=== PATIENT | female | born 1945 | race Caucasian/White ===

== ENCOUNTER 2017-03-03 06:44 | Day surgery (SDC) | payer MEDICARE, OTHER ==
[~2017-03-03] VITALS: Ht 162.6 cm; Wt 84.2 kg
[~2017-03-03 06:44] MED LIST: 1-ME1LIQ PO; ALPR.25 PO; AMIT8CAP6 PO; ASPI81TA82 PO; ATEN-100 PO; B-CO1TAB5 PO; BENA25TA8 PO; CENTCHW3; CITA20TA4 PO; FLUT50I EACH NARE; FOSI40TA PO; FURO20TA PO; GABA300C3 PO; HYDR10SO PO; KCL10C PO; MILN50 PO; OMEG12002; OMEP20TA39 PO; PRAV20 PO; RANI150T PO; ROPI1TAB72 PO; STOO100T PO; VESI10TA4 PO; VITA-13 PO; [UNRECOGNIZED DRUG - CODE]
[2017-03-03] MEDS ORDERED: IOHEXOL 350 MG/ML 100 ML BTL (for Cath Lab) OTHER ONE (06:45)
[2017-03-03] MEDS ORDERED: diphenhydrAMINE HCL 50 MG CAP PO SCH (07:30)
[2017-03-03] MEDS ORDERED: MIDAZOLAM HCL 2 MG/2 ML VIAL IV SCH (07:30)
[2017-03-03] MEDS ORDERED: ASPIRIN 325 MG TAB PO SCH (07:30)
[2017-03-03] MEDS ORDERED: DIAZEPAM 5 MG TAB PO SCH (07:30)
[2017-03-03 07:45] VITALS: BP 125/63; PULSE 72; RESP 17; TEMP 98.4; O2SAT 97
[2017-03-03] MEDS ORDERED: SODIUM CHLOR 0.9% 1000 ML INJ 1,000 ML IV SCH ×2 (08:00→09:08)
[2017-03-03] MEDS ORDERED: VERAPAMIL HCL 5 MG/2 ML VIAL ONE (08:19)
[2017-03-03] MEDS ORDERED: MIDAZOLAM HCL 2 MG/2 ML VIAL ONE (08:19)
[2017-03-03] MEDS ORDERED: NITROGLYCERIN INJ 5 ML ONE ×2 (08:19→08:20)
[2017-03-03] MEDS ORDERED: HEPARIN SODIUM - IV 10,000 UNITS/10 ML VIAL ONE (08:19)
[2017-03-03] MEDS ORDERED: HEPARIN-NS/PF INJ 1,000 ML ONE (08:19)
[2017-03-03 08:22] LABS: HEMATOCRIT 38.5 % (35.0-46.0); MEAN CELL VOLUME 85.5 FL (80.0-100.0); MEAN CORPUSCULAR HEMOGLOBIN 27.7 PG (27.0-34.0); MEAN CORPUSCULAR HGB CONC 32.4 % (32.0-36.0); PLATELET COUNT 219 TH/MM3 (150-450); REVIEW FLAG FINAL
[2017-03-03] MEDS ORDERED: VITA100064 PO (08:30)
[2017-03-03] MEDS ORDERED: ATEN25TA PO (08:30)
[2017-03-03] MEDS ORDERED: [UNRECOGNIZED DRUG - CODE] (08:30)
[2017-03-03] MEDS ORDERED: GABA400C5 PO (08:30)
[2017-03-03] MEDS ORDERED: AMIT8CAP6 PO (08:30)
[2017-03-03] MEDS ORDERED: FISHCAP4 PO (08:30)
[2017-03-03] MEDS ORDERED: VESI10TA PO (08:30)
[2017-03-03] MEDS ORDERED: [UNRECOGNIZED DRUG - CODE] TOPICAL (08:30)
[2017-03-03] MEDS ORDERED: ASPI81CH CHEW (08:30)
[2017-03-03] MEDS ORDERED: OMEP40CA2 PO (08:30)
[2017-03-03] MEDS ORDERED: FURO1TAB62 PO (08:30)
[2017-03-03] MEDS ORDERED: PRAV40TA PO (08:30)
[2017-03-03] MEDS ORDERED: VITA150T (08:30)
[2017-03-03] MEDS ORDERED: ROPI1TAB PO (08:30)
[2017-03-03] MEDS ORDERED: DOCU50CA5 (08:30)
[2017-03-03] MEDS ORDERED: CITA20TA4 PO (08:30)
[2017-03-03] MEDS ORDERED: MILN25 PO (08:30)
[2017-03-03] MEDS ORDERED: FLUT50SP EACH NARE (08:30)
[2017-03-03] MEDS ORDERED: AMLO10TA2 PO (08:30)
[2017-03-03] MEDS ORDERED: ALPR.25 PO (08:30)
[2017-03-03] MEDS ORDERED: POTA10CA PO (08:30)
[2017-03-03] MEDS ORDERED: DIPH25CA PO (08:30)
[2017-03-03] MEDS ORDERED: FOSI40TA PO (08:30)
[2017-03-03] MEDS ORDERED: RANI150T PO (08:30)
[2017-03-03] MEDS ORDERED: HYDR-3366 PO (08:30)
[2017-03-03 08:38] LABS: BICARBONATE 30.8 MEQ/L (21.0-32.0)
[2017-03-03 08:42] LABS: PROTHROMBIN TIME - PATIENT 11.2 SEC (9.8-11.6)
--- NOTE | 2017-03-03 09:10 | CATHPROC ---
[employer] HIS Report Study Information Study Number Admission Scheduled Start Study Start [id number] Mar 03 2017 6:44AM 03/03/2017 Mar 03 2017 8:23AM Harold Service Cardiac Catheterization Admit Source Facility Department Other [facility] Physician and Clinical Staff Initial Ulises Olmedo [facility] Counselor Parker Ramires,SUSANNA [facility] Counselor Lovely Tejeda RN Recorder Emma Sharp,RT(R) Scrub Dallas Snyder RCIS(BS) Scrub Luly Blackwell,RT(R) Procedures Performed Procedure Location (Site) Vessel Name Coronary Angiograms LCA Left Coronary Coronary Angiograms RCA Right Coronary L Heart Cath Wire insertion Radial (right) Radial Art. Equipment Time Secondary Connector Armature Description Size Mfg Part Number Used/Scraped TRANSDUCER, TRUWAVE [id number] 08:32 [employer] * Used W/STOCKCOCK *[id number] *[id number] *[id number] 08:32 MALLINCKRODT SYRINGE, ANGIOMAT 150ML 150ML *[id number] Used 2SUB [id number] 08:32 Tred PACK, CCL CUSTOM * Used *[id number] 08:32 Tred SUPPORT, ARTERIAL ADULT 41205 *[id number] Used [id number] 08:32 [employer] PACER PEN, SKIN DUAL W/ RULER * Used *[id number] BAND, RADIAL COMPRESSION TR [id number] 09:02 I-DISPO MEDICAL 24CM Used SHORT 24 *[id number] 08:32 I[employer] MEDICAL WIRE, EXCHANGE 260CM 3MMJ 260CM Used *[id number] 08:32 NAMIC MANIFOLD, 4 PORT * Used *[id number] 08:42 NAMIC TUBING, HIGH PRESSURE 20" 20" Used *[id number] 09:08 [employer] OMNIPAQUE, 350 MG, 150ML 150ML [id number] Used 08:32 [employer] OMNIPAQUE, 350 MG, 150ML 150ML [id number] Used [id number] 08:32 RUIZ MED[employer] BLANKET,WARM AIR CCL * Used *[id number] CATHETER, FR5 OPTITORQUE [id number] 08:38 TER[employer] FR 5 Used RADIAL TIG 4.0 *[id number] SHEATH, FR6 TRANSRADIAL RM*[id number] 08:32 [employer] FR 6 Used SLENDER 10CM *[id number] History: Current Medications Medication Dosage/Unit Route Frequency Last Date/Time Taken ASA Beta Cass NORVASC History: Risk Factors Family History of Hypertension Dyslipidemia Previous NH Previous Heart Failure Premature CAD Yes Yes Yes No No Prior Valve Prior PCI Prior CABG Surgery No No No Cerebrovascular Peripheral Artery Chronic Lung On Dialysis Diabetes Disease Disease Disease No No Yes No No History: Stress Tests Stress or Imaging Studies Performed Yes Standard Exercise Stress Test No Stress Echo No Stress Test SPECT Stress Test SPECT Result Stress Test SPECT Ischemia Risk/Extent Yes Positive High Stress Test CMR No Cardiac CTA Coronary Calcium Score No No History: Other Current Smoker Method Quit Packs a Day No Cigarettes 60 Years Ago 1 Labs Hct (%) WBC (l/cumm) Platelets (thousands) 35.00-51.00 4.00-11.00 150.00-450.00 42.2 4.9 229 Glucose (mg/dl) BUN (mg/dl) Creatinine (mg/dl) BUN:Creatinine (1:x) 74.00-106.00 7.00-18.00 0.50-1.30 10.00-20.00 109 18 0.6 30 Na (meq/l) K (meq/l) 136.00-145.00 3.50-5.10 136 4.2 CPK-MB (ng/ML) 0.50-3.60 Not Drawn Medication Medication Total Dose (Bolus/Oral) Medication Total Dosage/Unit 1% XYLOCAINE 20 mL FENTANYL 50 mcg OXYGEN 2 l/min RADIAL COCKTAIL 5 mL (Bolus) VERSED 2 mg Medications (Bolus/Oral) Medication Time Given Dosage/Unit Administered By Reason FENTANYL 03/03/2017 8:23:00 AM 50 mcg Lovely Tejeda 50 mcg FENTANYL given in lab by oLvely Tejeda, RN in Left Antecubital via Peripheral IV. VERSED 03/03/2017 8:24:39 AM 2 mg Lovely Tejeda 2 mg VERSED given in lab by Lovely Tejeda, SUSANNA in Left Antecubital via Peripheral IV. Ordered by Ulises Rod. OXYGEN 03/03/2017 8:26:00 AM 2 l/min Lovely Tejeda 2 l/min OXYGEN given in lab by Lovely Tejeda, RN via Nasal. 1% XYLOCAINE 03/03/2017 8:37:19 AM 20 mL Ulises Reddy 20 mL 1% XYLOCAINE given in lab by Ulises Reddy in Right Wrist via Subcutaneous. Ntg 200mcg Verapamil 2.5mg Heparin RADIAL COCKTAIL 03/03/2017 8:39:10 AM 5 mL (Bolus) Ulises Reddy 3000U 5 mL (Bolus) RADIAL COCKTAIL given in lab by Ulises Reddy in Right Radial via Radial. Using [Solu tion Name]. Reason: Ntg 200mcg Verapamil 2.5mg Heparin 3000U. Medication (Drip) Medication Time Given Dosage/Unit Concentration/Unit Diluent (ml) Solution IV Solutions 03/03/2017 8:31:01 AM 0 mL (IV) 500 NaCl .9 Patient arrived on IV Solutions in Left Antecubital via Peripheral IV. Pump/Drip Flow = 20 ml/hr usin g NaCl .9. Ordered by Ulises Reddy. Initial Case Assessment Cardiovascular HR Rhythm NIBP 70 paced 95/52 Edema Present Skin color Skin None Normal Warm Circulatory - Right Pulses Dorsalis Pedis Femoral Radial 2 2 2 Scale (0,1,2,3,4,d) Circulatory - Left Pulses Dorsalis Pedis Femoral Radial 2 2 Scale (0,1,2,3,4,d) Circulatory - Lower Extremities Color Lower Right Color Lower Left Normal Normal Neurological State Oriented to time-place- Alert Moves all extremities person Respiration - General Respiration Rate SpO2 (%) (B/min) 26 95 Final Case Assessment Cardiovascular HR Rhythm NIBP Chest Pain 69 reg 86/53 0 Edema Present Skin color Skin None Normal Warm Circulatory - Right Pulses Dorsalis Pedis Femoral Radial 2 2 2 Scale (0,1,2,3,4,d) Circulatory - Left Pulses Dorsalis Pedis Femoral Radial 2 2 Scale (0,1,2,3,4,d) Neurological State Oriented to time-place- Alert Moves all extremities person Respiration - General Respiration Rate SpO2 (%) (B/min) 13 99 Chronological Log Time Study Chronological Log 8:22:46 Patient arrived via Bed. 8:22:47 Patient Name, D.O.B, / Armband Verified By R.N. 8:22:48 Consent signed by the physician and the patient and verified by the [facility] staff. 8:22:48 Pre-op and post- op instructions given; patient acknowledges understanding of instructions. 8:22:49 Verbal Stimulation=2 Physical Stimulation=2 Airway=2 Respiration=2 TOTAL=8. (0=absent, 1=li mited, 2=present) 8:22:50 MD arrived. 8:22:54 Allens test performed on the right radial and ulnar artery. 8:23:00 50 mcg FENTANYL given in lab by Lovely Tejeda, SUSANNA in Left Antecubital via Peripheral IV. Vitals capture started with the following parameters, Patient=Adult, Interval=5 min, Initial Pr bncpbo=694 mmHg, 8:23:38 Deflation Rate=5 mmHg, Cuff placed on Right Arm 8:24:19 HR=74 bpm, NIBP=90/47 mmhg, SpO2=95.0 %, Resp=10 B/min, Pain=0, Ricco=10, Mckeon=2 8:24:39 2 mg VERSED given in lab by Lovely Tejeda, SUSANNA in Left Antecubital via Peripheral IV. Orde red by Ulises Reddy. 8:24:55 Reference ECG taken 8:26:00 2 l/min OXYGEN given in lab by Lovely Tejeda, SUSANNA via Nasal. 8:29:10 HR=71 bpm, NIBP=95/52 mmhg, SpO2=95 %, Resp=8 B/min, Pain=0, Ricco=10, Mckeon=2 8:30:45 Patient has been NPO for More than 6Hrs. 8:30:47 Skin Breakdown-none 8:30:56 A # 20 IV was noted in the Antecubital (left). Grade = 0 Patient arrived on IV Solutions in Left Antecubital via Peripheral IV. Pump/Drip Flow = 20 ml/hr using NaCl .9. Ordered 8:31:01 by Ulises Reddy. 8:31:19 History and physical on the chart or being dictated. Assessment: Initial Case, HR=70 BPM, Rhythm=paced, NIBP=95/52 mmhg, Edema=None, Color=Normal, Sk in = Warm Right Pulses: Quang Ped=2, Femoral=2, Radial=2 Left Pulses: Quang Ped=2, Femoral=2 8:31:22 Lower Right Extremities: Color=Normal Lower Left Extremities: Color=Normal Neurological: State=Alert, Ox3, RODRIGUEZ Respiration: Resp=26 B/min, SpO2=95 % 8:34:11 HR=76 bpm, NIBP=88/53 mmhg, SpO2=95.0 %, Resp=20 B/min, Pain=0, Ricco=10, Mckeon=2 Time Out. Correct patient, correct procedure,correct physician, ,power injector loaded or not katlyn aded with contrast with 8:34:30 surgical team present. Time Out Concurred by MD, individual staff and ROTARY DRIER OPERATOR in procedure 8:34:40 Case Start 8:36:50 Pressure channel 1 zeroed. 8:37:19 20 mL 1% XYLOCAINE given in lab by Ulises Reddy in Right Wrist via Subcutaneous. 8:37:32 Access site was Radial Artery.rt 8:37:42 A wire was inserted via Radial (right). A SHEATH, FR6 TRANSRADIAL SLENDER 10CM FR 6 was advanced into the Radial (right) using the Dori peterson 8:37:53 technique. 8:38:02 power injector loaded by ramin tejeda and verified by michelle snyder 5 mL (Bolus) RADIAL COCKTAIL given in lab by Ulises Reddy in Right Radial via Radial. Using [Solution Name]. 8:39:10 Reason: Ntg 200mcg Verapamil 2.5mg Heparin 3000U. 8:40:40 HR=70 bpm, NIBP=74/35 mmhg, SpO2=92.0 %, Resp=12 B/min, Pain=0, Ricco=10, Mckeon=2 A CATHETER, FR5 OPTITORQUE RADIAL TIG 4.0 FR 5 was advanced over a wire. OMNIPAQUE, 350 MG, 150M L 150ML 8:40:47 was used for injections. Recorded Pressure: Ao, HR=70, Condition=Condition 1 8:41:18 (Aorta) Ao 100/49/69 8:42:10 The LCA was injected and visualized at various angles. OMNIPAQUE, 350 MG, 150ML 150ML used. 8:44:09 HR=69 bpm, NIBP=81/46 mmhg, SpO2=96.0 %, Resp=12 B/min, Pain=0, Ricco=10, Mckeon=2 8:46:13 Catheter was removed A JR 5.0 INFINITI CATHETER FR 6 was advanced over a wire. OMNIPAQUE, 350 MG, 150ML 150ML was use d for 8:47:16 injections. 8:48:37 The RCA was injected and visualized at various angles. OMNIPAQUE, 350 MG, 150ML 150ML used. 8:49:12 HR=71 bpm, NIBP=83/37 mmhg, SpO2=97.0 %, Resp=12 B/min, Pain=0, Ricco=10, Mckeon=2 After removing the current catheter a PIGTAIL STR INFINITI CATHETER FR 6 was advanced over a WIR E, EXCHANGE 8:49:43 260CM 3MMJ 260CM. Recorded Pressure: LV, HR=70, Condition=Condition 1 8:53:06 (Left Ventricle) LV 119/9/16 8:54:09 HR=94 bpm, NIBP=86/53 mmhg, SpO2=98.0 %, Resp=18 B/min, Pain=0, Ricco=10, Mckeon=2 Recorded Pressure: LV, Ao, HR=71, Condition=Condition 1 8:54:47 (Left Ventricle) LV 109/-8/17, (Aorta) Ao 107/51/72 8:55:41 Catheter was removed 8:56:51 Case End Assessment: Final Case, HR=69 BPM, Rhythm=reg, NIBP=86/53 mmhg, Chest Pain=0, Edema=None, Color= Normal, Skin = Warm Right Pulses: Quang Ped=2, Femoral=2, Radial=2 8:56:56 Left Pulses: Quang Ped=2, Femoral=2 Neurological: State=Alert, Ox3, RODRIGUEZ Respiration: Resp=13 B/min, SpO2=99 % 8:59:12 HR=68 bpm, NIBP=88/54 mmhg, SpO2=98.0 %, Resp=16 B/min, Pain=0, Ricco=10, Mckeno=2 9:02:30 Vitals capture stopped. 9:02:36 No case complications noted. 9:02:39 Cine recording checked. 9:02:40 Bedside Report will be given. 9:02:43 Contrast Scanned 9:02:45 A Left Heart Cath was performed. 9:02:49 Clinical correlaton risk stratification. 9:03:13 Catheter(s) removed without difficulty Radial Compression Device Used. 13 mLs of air placed in BAND, RADIAL COMPRESSION TR SHORT 24 2 4CM. Affected 9:03:15 hand 99 % O2 saturation. 9:03:35 Sterile dressing applied to site End Study - Contrast Media Used In Study Contrast Total Opened (mL) Total Used (mL) Total Wasted (mL) Omnipaque 65 65 0 End Study - Maximum Contrast Load Max Contrast Load (mL) 701.5 End Study - Radiation Exposure Fluoro Time (minutes) 7.4 End Study - Sheaths Sheaths Pulled By Sheath Hold Time (min) Dallas Snyder End Study - Patient Disposition Complications Transferred To No Outpatient Bed
[2017-03-03] MEDS ORDERED: SODIUM CHLORIDE 0.9% FLUSH 10 ML FLUSH IV FLUSH PRN (09:15)
[2017-03-03] MEDS ORDERED: MISC INFORMATION XX ONE (09:15)
[2017-03-03] MEDS ORDERED: BACITRACIN OINT 0.9 GM PKT TOP ONE (09:15)
[2017-03-03] MEDS ORDERED: SODIUM CHLORIDE 0.9% FLUSH 10 ML FLUSH IV FLUSH SCH (21:00)
--- NOTE | 2017-03-05 11:05 | MA ---
cc: MEGGAN SCHROEDER M.D. LETHAPURAIVONNENiharikaKINA FERRERA DATE: 03/03/2017 PROCEDURE PERFORMED: Left heart catheterization. Coronary arteriography. Left ventriculography. Right radial approach. PROCEDURE TECHNIQUE: The patient was brought to the cardiac catheterization laboratory and the area of the right wrist prepped and draped in the usual sterile manner following 5 mL of 1% Xylocaine for local anesthesia. The right radial artery was entered with a needle for placement of a floppy straight guidewire. A small arleen was made with an #11 scalpel and a 6-Luxembourgish introducer sheath was passed into the right radial artery without difficulty. The dilator and guidewire were removed and the standard cocktail was infused through the catheter with the use of a 6-Luxembourgish including a TIG, JR5 and straight pigtail the left heart study was performed. Multiple projections of the left and right coronary arteries were taken and the left ventriculogram was done in the CHRISTOPHER 33 projection only. At completion of the diagnostic procedures, the catheters and were removed. Adequate hemostasis was maintained with the use of manual pressure and a TR band. The patient tolerated the procedure well with no immediate complications. HEMODYNAMIC DATA: No gradient was recorded across the aortic valve. For complete hemodynamic details, please see accompanying paperwork. ANGIOGRAPHIC FINDINGS: 1. Left ventricle. The left ventricle demonstrates normal end systolic and diastolic dimensions. Overall left ventricular contractility is normal. Estimated left ventricular ejection fraction is 65%. No wall motion abnormalities identified. No mitral regurgitation. The aortic valve is trileaflet and opens normally. The aortic root and proximal portion of the ascending aorta are normal. 2. Left coronary artery / left main trunk: Arises normally from the left coronary sinus. There is some mild calcification at the origin of the left main trunk. This vessel is otherwise normal without obstruction or disease. 3. Left anterior descending artery: The LAD is a cnhrzmzi-np-jsiql caliber vessel whose course is to the apex. The LAD gives rise to two diagonal branches and multiple septal perforating branches. The left anterior descending is moderately tortuous proximal mid segment but is otherwise normal. The first diagonal branch is small to medium in caliber and normal. The second diagonal branch is large in caliber and normal. 4. Circumflex. The main circumflex gives rise to a posterolateral branch and a posterior ventricular branch. The main circumflex is large in caliber, nondominant and normal. The posterolateral branch is large in caliber and normal. The posterior ventricular branch is medium in caliber and normal. 5. Right coronary artery: Dominant. Right coronary gives rise to a right ventricular marginal branch, a posterior descending branch and posterior ventricular branch. Right coronary is moderate caliber and has some moderate tortuosity in the mid segment. The RV branch is small in caliber. The posterior descending branch is small in caliber and normal. The posterior ventricular branch is moderate in caliber and normal. DIAGNOSIS: 1. Normal coronary arteries. 2. Normal left ventricular function. COMMENTS / RECOMMENDATIONS: Angiographically, this patient has no obstructive epicardial coronary artery disease. She will be continued with lifestyle modification and medical therapy and discharged to home later today when ambulatory and stable. MD ZULEIMA Pink/SAGE /9:01 AM /10:47 AM
== END 2017-03-03 13:36 | disposition home or self-care (01) ==
LOC: HDOC 06:44 → HDIC 06:45 → HDOC 13:36
PROVIDERS: ATTEND Internal Medicine Interventional Cardiology
DX: R94.39 Abnormal result of other cardiovascular function study (principal); I44.7 Left bundle-branch block, unspecified; R94.31 Abnormal electrocardiogram [ECG] [EKG]; R06.00 Dyspnea, unspecified; I73.9 Peripheral vascular disease, unspecified; E78.00 Pure hypercholesterolemia, unspecified; Z01.818 Encounter for other preprocedural examination; E66.9 Obesity, unspecified; Z68.31 Body mass index [BMI] 31.0-31.9, adult
CPT/HCPCS: 80048; 85027; 85610; 85730; 93458; C1760; C1769; C1893; G0269; J1644; J2250; J3010; Q9967